=== PATIENT | female | born 1940 | race Caucasian/White ===

== ENCOUNTER 2017-08-01 07:13 | Day surgery (SDC) | payer OTHER, BC ==
[2017-07-29 14:49] VITALS: BMI 29.6
[2017-08-01] MEDS ORDERED: PROPOFOL 20 ML ONE ×2 (08:32)
[2017-08-01] MEDS ORDERED: LIDOCAINE HCL/PF 2% SDV 5ML VIAL ONE (08:32)
[2017-08-01 09:20] VITALS: TEMP 97.6
[2017-08-01 10:15] VITALS: BP 139/55; PULSE 64
--- NOTE | 2017-08-02 15:22 | PATH ---
Surgical Pathology Report Patient Name: CADE HENRY [facility]. Rec. #: [id number] /Age/Gender: 1940 (Age: 76) / F Account: [id number] Location: [facility]-ENDOSCOPY Taken: 08/01/2017 Received: 08/01/2017 Reported: 08/02/2017 Physicians: Purvi Ricci M.D. Specimen(s) Received A: RECTAL POLYP B: BX POLYPS FROM SIGMOID COLON Clinical History History of colonic polyp, diverticulosis Postoperative diagnosis: Rectal polyps, colon polyps and diverticulosis Final Diagnosis A. RECTAL POLYP, POLYPECTOMY: HYPERPLASTIC POLYP. B. SIGMOID COLON POLYPS, BIOPSY: FRAGMENTS OF COLONIC MUCOSA WITH FOCAL SUPERFICIAL GLANDULAR HYPERPLASTIC CHANGE. Electronically Signed Miguelina Rivera M.D. Gross Description A. Received in formalin, labeled "biopsy rectal polyps" are 2 parks, irregular portions of soft tissue averaging 0.4 cm. in greatest dimension. The specimens are submitted in toto in one cassette. B. Received in formalin, labeled "biopsy polyps sigmoid" are 8 parks, irregular portions of soft tissue ranging from 0.1-0.4 cm. in greatest dimension. The specimens are submitted in toto in one cassette. 08/01/201708/01/2017
== END 2017-08-01 10:15 | disposition home or self-care (01) ==
LOC: JASU-ENDO 07:13
PROVIDERS: ATTEND Internal Medicine Gastroenterology
PROC: 0DBN8ZX Excision of Sigmoid Colon, Via Natural or Artificial Opening Endoscopic, Diagnostic (ICD-10-PCS; 2017-08-01)
PROC: 0DBP8ZX Excision of Rectum, Via Natural or Artificial Opening Endoscopic, Diagnostic (ICD-10-PCS; principal; 2017-08-01 08:30)
DX: Z12.11 Encounter for screening for malignant neoplasm of colon (principal); Z86.010 Personal history of colon polyps; K57.30 Diverticulosis of large intestine without perforation or abscess without bleeding; K62.1 Rectal polyp; D12.5 Benign neoplasm of sigmoid colon; K55.20 Angiodysplasia of colon without hemorrhage
CPT/HCPCS: 88305-TC

== ENCOUNTER 2017-10-19 08:18 | Day surgery (SDC) | payer OTHER, BC ==
[2017-10-18 15:21] VITALS: BMI 30.2
[2017-10-19] MEDS ORDERED: PROPOFOL 20 ML ONE (08:45)
[2017-10-19] MEDS ORDERED: ePHEDrine SULFATE 50 MG/1 ML AMPULE ONE (08:45)
[2017-10-19] MEDS ORDERED: LIDOCAINE HCL/PF 2% SDV 5ML VIAL ONE (08:45)
[2017-10-19 09:25] VITALS: TEMP 98
[2017-10-19 09:47] VITALS: PULSE 60
[2017-10-19 10:12] VITALS: BP 153/62
--- NOTE | 2017-10-20 16:42 | PATH ---
Surgical Pathology Report Patient Name: CADE HENRY [facility]. Rec. #: [id number] /Age/Gender: 1940 (Age: 77) / F Account: [id number] Location: [facility]-ENDOSCOPY Taken: 10/19/2017 Received: 10/19/2017 Reported: 10/20/2017 Physicians: Purvi Ricci M.D. Specimen(s) Received A: BX 2ND PORTION DUODENUM AND BULB B: BX GASTRIC ANTRUM C: BX GASTRIC FUNDUS D: BX GE JUNCTION Clinical History GERD, cologuard positive, rule out UGI adenoma Postoperative diagnosis: Hiatal hernia, GERD, fundus and body hemorrhagic gastritis Final Diagnosis A. SECOND PORTION DUODENUM AND BULB, BIOPSY: DUODENAL MUCOSA WITH MILD CHRONIC DUODENITIS. B. GASTRIC ANTRUM, BIOPSY: GASTRIC MUCOSA WITH MILD CHRONIC GASTRITIS AND FOCAL HEMORRHAGE IN THE SUPERFICIAL PORTION OF THE LAMINA PROPRIA. POSITIVE FOR INTESTINAL METAPLASIA. IMMUNOSTAIN IS NEGATIVE FOR H. PYLORI ORGANISMS. C. GASTRIC FUNDUS, BIOPSY: GASTRIC MUCOSA WITH MILD CHRONIC GASTRITIS AND FOCAL HEMORRHAGE IN THE SUPERFICIAL PORTION OF THE LAMINA PROPRIA. IMMUNOSTAIN IS NEGATIVE FOR H. PYLORI ORGANISMS. D. GE JUNCTION, BIOPSY: ESOPHAGEAL (SQUAMOUS) MUCOSA WITH CHANGES CONSISTENT WITH REFLUX ESOPHAGITIS. Electronically Signed Miguelina Rivera M.D. Gross Description A. Received in formalin, labeled "biopsies second portion of duodenum and bulb" are 3 parks, irregular portions of soft tissue ranging from 0.3-0.5 cm. in greatest dimension. The specimens are submitted in toto in one cassette. B. Received in formalin, labeled "biopsy gastric antrum" are 4 parks, irregular portions of soft tissue ranging from 0.2-0.7 cm. in greatest dimension. The specimens are submitted in toto in one cassette. C. Received in formalin, labeled "biopsy gastric fundus" are 3 parks, irregular portions of soft tissue ranging from 0.3-0.7 cm. in greatest dimension. The specimens are submitted in toto in one cassette. D. Received in formalin, labeled "biopsy GE junction" are 5 parks, irregular portions of soft tissue ranging from 0.2-0.4 cm. in greatest dimension. The specimens are submitted in toto in one cassette. 10/19/201710/19/2017
== END 2017-10-19 10:30 | disposition home or self-care (01) ==
LOC: JASU-ENDO 08:18
PROVIDERS: ATTEND Internal Medicine Gastroenterology
PROC: 0DB68ZX Excision of Stomach, Via Natural or Artificial Opening Endoscopic, Diagnostic (ICD-10-PCS; 2017-10-19)
PROC: 0DB38ZX Excision of Lower Esophagus, Via Natural or Artificial Opening Endoscopic, Diagnostic (ICD-10-PCS; 2017-10-19)
PROC: 0DB98ZX Excision of Duodenum, Via Natural or Artificial Opening Endoscopic, Diagnostic (ICD-10-PCS; principal; 2017-10-19 09:00)
DX: K29.61 Other gastritis with bleeding (principal); K44.9 Diaphragmatic hernia without obstruction or gangrene
CPT/HCPCS: 88305-TC; 88342-TC

== ENCOUNTER 2020-11-20 04:35 | Day surgery (SDC) | payer OTHER, BC ==
[2020-11-19 11:04] VITALS: BMI 29.9
[2020-11-20 12:47] VITALS: TEMP 98.1
[2020-11-20 13:31] VITALS: BP 159/55; PULSE 67
== END 2020-11-20 13:45 | disposition home or self-care (01) ==
LOC: JASU-ENDO 04:35
PROVIDERS: ATTEND Internal Medicine Gastroenterology
PROC: 0DB78ZX Excision of Stomach, Pylorus, Via Natural or Artificial Opening Endoscopic, Diagnostic (ICD-10-PCS; 2020-11-20)
PROC: 0DB98ZX Excision of Duodenum, Via Natural or Artificial Opening Endoscopic, Diagnostic (ICD-10-PCS; principal; 2020-11-20 12:15)
DX: K44.9 Diaphragmatic hernia without obstruction or gangrene (principal); D50.9 Iron deficiency anemia, unspecified; I10 Essential (primary) hypertension